=== PATIENT | female | born 1990 | race Asian ===

== ENCOUNTER 2024-11-02 11:37 | Emergency (ER) | payer BC, SELFPAY ==
[2024-11-02] VITALS (7 sets, daily range): BP systolic 92–127; BP diastolic 60–80
--- NOTE | 2024-11-02 12:33 | ED.GENMED ---
History of Present Illness
General
Chief Complaint: Abdominal Pain
Source: patient
Exam Limitations: none
Time Seen by Provider: 11/02/24 12:24
History of Present Illness
History of Present Illness:
34yoF with a history of hypothyroidism presenting for evaluation of abdominal pain. Symptoms initially began about 3 days ago. She reports a sharp, stabbing pain in her LLQ. Pain has been constant and gradually worsening each day. Pain started to
radiate to the low back today. She initially thought her pain may be from gas but she is having normal bowel movements and pain is persistent. She denies any fevers, chills, vomiting, dysuria, diarrhea, hematochezia. Previous abdominal surgeries
include a section.
Phy Exam
General Physical Exam
General Presentation: well appearing and no apparent distress
General Skin: warm and dry
General Habitus: normal
General Mental: alert
ENT Exam
ENT Exam: normocephalic
Cardiovascular Exam
Cardiovascular Exam: regular rate/rhythm
Pulmonary Exam
Pulmonary Exam: lungs clear, no respiratory distress, no rales, no crackles, no rhonchi and no wheezing
Gastrointestinal Exam
Gastrointestinal Exam: soft, non distended, no cva tenderness and other (+Tenderness in LLQ. Abdomen soft, non-distended. No rebound or guarding.)
Neurological Exam
Neurological Exam: alert
[place] Coma Scale
Eye Opening: Spontaneous
Verbal Response: Oriented
Motor Response: Obeys Commands
GCS Total Score: 15
Skin Exam
Skin Exam: normal color and warm/dry
Psychiatric Exam
Psychiatric Exam: normal mood/affect
Course
Orders/Labs/Results
Orders:
Orders
11/02/24 12:32
CT Abd/pelvis W Iv Cont Urgent
Comment:
Reason For Exam: LLQ pain
Test Result ONCE
11/02/24 12:57
Complete Blood Count/With Diff Urgent
Comprehensive Metabolic Panel Urgent
HCG, Serum Qualitative Screen Urgent
Lipase Urgent
Urinalysis Reflex To Culture Urgent
Date Specimen was Collected: 11/02/24
Time Specimen was Collected: 12:53
Urine Microscopic Reflex Cult Urgent
Urine Culture Urgent
LICO Source: U
Specimen Description:
Date Specimen was Collected: 11/02/24
Time Specimen was Collected: 12:53
11/02/24 15:43
Ketorolac [Toradol] 15 mg IV NOW STA
Abnormal Lab Results
11/02/24
12:57
Hct 36.4 L %
(37.0-47.0)
Absolute Monos (auto) 0.7 H 10^3/uL
(0.1-0.6)
BUN 18 H mg/dl
(7-17)
Ur Occult Blood Reflex 2+ A
(Negative)
Leukocyte Esterase Rfl 3+ A
(Negative)
Urine Bacteria (Reflex) Many A
(Negative)
Urine Albumin (Reflex) 2+ A
(Neg - Trace)
11/02/24 12:57
11/02/24 12:57
Vital Signs
Initial and Last Documented VS:
Initial Vital Signs
Temp Pulse Resp BP Pulse Ox
98.7 F 102 18 127/80 97
11/02/24 11:39 11/02/24 11:39 11/02/24 11:39 11/02/24 11:39 11/02/24 11:39
Last Documented Vital Signs
Temp Pulse Resp BP Pulse Ox
98.7 F 78 16 109/74 98
11/02/24 11:39 11/02/24 15:52 11/02/24 15:52 11/02/24 15:52 11/02/24 15:52
MDM/Problems Addressed
Differential Diagnosis Includes:
34yoF here with LLQ pain x 3 days. Radiates to the low back. Otherwise asymptomatic. VSS. She is well appearing in no distress. No signs of peritonitis on abdominal exam. Differential diagnosis includes but is not limited to: diverticulitis,
colitis, constipation, ovarian cyst, kidney stone
Initial ED plan: Check abdominal labs, UA, and CT abdomen. She declines analgesics.
*Pulse Oximetry
Patient hypoxic: no (98%)
*Critical Care Note
Total Time (30-74mins, 75-104mins- exclusive of procedures): Not Applicable
Update Note
Update Note:
Labs overall unremarkable including normal white count. UA with many bacteria although only 0-2 WBCs. She has no urinary symptoms so will await urine culture results. CT shows evidence of epiploic appendagitis. Supportive care discussed
including heat and NSAIDs. Advised f/u with PCP and ED return precautions reviewed including fevers/severe pain. Patient in agreement with plan and was discharged in condition.
ED Attending Note
-
Portions of this chart may have been created with voice recognition software.� Occasional wrong word or��sound alike� substitutions may have occurred due to the inherent limitations of voice recognition software.
Discharge Plan
Departure
Patient Disposition: Home (Routine Discharge)
Date of Disposition: 11/02/24
Time of Disposition: 15:43
Patient with high blood pressure during this ER visit?: No
Discharge Problem:
Epiploic appendagitis
Instructions: Abdominal Pain
Prescriptions:
No Action
fluoxetine [Prozac] 40 MG capsule
40 mg PO DAILY
levothyroxine [Synthroid] 137 MCG tablet
137 mcg PO DAILY
prenat.vits,leslie,xyk-ejdn-ykcae [ Formula] 1 TAB tablet
1 tab PO DAILY
FOLic ACID 5,000 MCG Tab
5,000 mcg PO DAILY
Vitamin D3 5,000 UNIT Tab
5,000 unit PO DAILY
insulin regular human [Novolin R Regular U100 Insulin] 100 UNITS/ML solution
10 units SC BID
insulin NPH isoph U-100 human [Humulin N NPH U-100 Insulin] 100 UNIT/ML suspension
10 units SC DAILY
insulin NPH isoph U-100 human [Humulin N NPH U-100 Insulin] 100 UNIT/ML suspension
20 units SC QPM
Patient Comments:
takes PM dose around 2029
heparin (porcine) 5,000 UNITS/ML solution
5,000 units IV BID
acetaminophen 325 MG tablet
650 mg PO Q4HPRN PRN (Reason: mild pain) 0RF
levothyroxine 25 MCG tablet
137 mcg PO DAILY@0700 0RF
oxycodone-acetaminophen 5 MG/325 MG tablet
2 tab PO Q4HPRN PRN (Reason: severe pain) Qty: 12 0RF
ibuprofen 600 MG tablet
600 mg PO Q4HPRN PRN (Reason: cramps) 0RF
enoxaparin 40 MG/0.4 ML syringe
40 mg SC QPM 0RF
Referrals:
[facility] [Provider Group]
NONE,* [Family Provider, Internal Medicine]
Activity Restrictions/Additional Instructions:
Apply heating pad to affected area. Take ibuprofen as needed for pain.
Please follow-up with your family doctor. Return to the ER with any new or worsening symptoms including severe pain or fevers.
Interventions
Interventions:
*Risk Screen - Suicide Last Done: 11/02/24 11:39
*General Assessment Last Done: 11/02/24 11:39
*Neglect/Abuse Screening Last Done: 11/02/24 11:39
*ED COVID-19 Vaccine History Last Done: 11/02/24 11:39
*Nursing Disposition Last Done: 11/02/24 15:55
[facility] Assessment Last Done: 11/02/24 13:10
Discharge Date and Time
Discharge Date/Time: 11/02/24 15:55
Print Language: HEBREW
[2024-11-02 13:07] LABS: Urine Albumin 2+ (Neg - Trace); Urine Bilirubin Negative (Negative); Urine Character Cloudy (Clear); Urine Color Yellow; Urine Glucose Negative (Negative); Urine Ketone Negative (Negative); Urine Leukocyte 3+ (Negative); Urine Nitrite Negative (Negative); Urine Occult Blood 2+ (Negative); Urine Urobilinogen Negative (Neg - 1+)
[2024-11-02 13:10] LABS: % Basophils 0.7 % (0-2); % Eosinophils 1.5 % (0-6); % Immature Granulocytes 0.4 % (0-0.5); % Lymphocytes 25.9 % (20.5-51.1); % Monocytes 7.3 % (1.7-9.3); % Neutrophils 64.2 % (42.2-75.2); Absolute Basophils 0.1 10^3/uL (0-0.2); Absolute Eosinophils 0.2 10^3/uL (0-0.7); Absolute Lymphocytes 2.5 10^3/uL (1.2-3.4); Absolute Monocytes 0.7 10^3/uL (0.1-0.6); Absolute Neutrophils 6.2 10^3/uL (1.4-6.5); Hematocrit 36.4 % (37.0-47.0); Hemoglobin 12.6 g/dL (12.0-16.0); Mean Corp Hgb Conc. 34.6 g/dL (33.0-37.0); Mean Corpuscular Hgb 29.7 pg (27.0-31.0); Mean Corpuscular Volume 85.8 fL (81.0-99.0); Mean Platelet Volume 9.3 fL (7.4-10.4); Nucleated Red Blood Cells % 0 %; Platelet Count 305 10^3/uL (130-400); Red Blood Cell Count 4.24 10^6/uL (4.20-5.40); Red Cell Dist. Width 13.2 % (11.5-14.5); White Blood Cell Count 9.7 10^3/uL (4.8-10.8)
[2024-11-02 13:32] LABS: HCG, Serum Qualitative Screen Negative
[2024-11-02 13:37] LABS: ALT (SGPT) 29 U/L (0-35); AST (SGOT) 21 U/L (14-36); Albumin 4.6 g/dl (3.5-5.0); Alkaline Phosphatase 46 U/L (38-126); Blood Urea Nitrogen 18 mg/dl (7-17); Calcium 9.6 mg/dl (8.4-10.2); Carbon Dioxide 26 mmol/L (22-30); Chloride 106 mmol/L (98-107); Glucose 87 mg/dl (70-99); Lipase 243 U/L (23-300); Potassium 4.2 mmol/L (3.5-5.1); Sodium 141 mmol/L (135-145); Total Bilirubin 0.5 mg/dl (0.2-1.3); eGFR > 60.00
[2024-11-02 13:48] LABS: Urine Squamous Cell 0-2 /LPF (Few)
[2024-11-02 13:49] LABS: Urine Bacteria Many (Negative); Urine Red Blood Cell 0-2 /HPF (0-2); Urine White Cell 0-2 /HPF (0-5)
[2024-11-02] MEDS: TORADOL 15 MG IV (15:50)
== END 2024-11-02 15:55 | disposition home or self-care (01) ==
LOC: EMR 11:37
PROVIDERS: Physician Assistant; EMERGENCY PHYSICIAN Emergency Medicine
DX: K63.89 Other specified diseases of intestine (principal); E03.9 Hypothyroidism, unspecified
CPT/HCPCS: 99284; 96374; 74177; 80053; 81003; 81015; 83690; 84703; 85025; 87086; Q9967